=== PATIENT | male | born 1990 | race African-American/Black ===

== ENCOUNTER 2021-05-11 10:29 | Emergency (ER) | payer OTHER ==
[~2021-05-11] VITALS: Ht 190.5 cm; Wt 145.0 kg
[~2021-05-11 10:29] MED LIST: IBUP-2028 PO; LORA-249; RISO02
[2021-05-11 10:37] VITALS: BP 157/95
== END 2021-05-11 11:39 | disposition home or self-care (01) ==
LOC: ER 10:29
DX: T16.1XXA Foreign body in right ear, initial encounter (principal); J45.909 Unspecified asthma, uncomplicated; X58.XXXA Exposure to other specified factors, initial encounter; Y93.89 Activity, other specified; Y92.9 Unspecified place or not applicable
CPT/HCPCS: 69200; 99284